=== PATIENT | male | born 1975 | race Two or more races ===

== ENCOUNTER 2021-09-03 11:30 | Emergency (ER) | payer OTHER ==
[~2021-09-03] VITALS: Ht 165.1 cm; Wt 65.8 kg
== END 2021-09-03 17:37 | disposition left against medical advice (07) ==
LOC: ER 11:30
DX: M79.602 Pain in left arm (principal); R20.0 Anesthesia of skin; Z20.822 Contact with and (suspected) exposure to COVID-19

== ENCOUNTER 2021-09-04 08:31 | Outpatient (CLI) | payer OTHER | END 2021-09-04 08:40 | disposition home or self-care (01) | LOC: NUCLEAR 08:31 | PROVIDERS: ATTEND Student in an Organized Health Care Education/Training Program | DX: M62.89 Other specified disorders of muscle (principal) ==